=== PATIENT | female | born 1990 | race Caucasian/White ===

== ENCOUNTER 2024-05-08 11:17 | Emergency (ER) | payer OTHER, BC, SELFPAY ==
[2024-05-08 11:20] VITALS: BP 141/83
--- NOTE | 2024-05-08 11:34 | ED.GENMED ---
History of Present Illness
<Jenny Garcia PA-C - Last Filed: 05/08/24 18:23>
General
Chief Complaint: Fall
Source: patient
Exam Limitations: none
Time Seen by Provider: 05/08/24 11:32
Nursing documentation reviewed up to this point in time: agreed with
Travel History
Have you had any contact with someone who has COVID-19?: No
Do you have any symptoms of coronavirus? Fever > 100 degrees, chills, cough, shortness of breath, sore throat, loss of taste or smell, muscle aches, or headache?: No
History of Present Illness
History of Present Illness:
Patient is a 33-year-old female at 14 weeks gestation presenting to the emergency room for evaluation following fall earlier this morning at work. 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
landing on her left side. She did not hit her head or lose consciousness. She has no real complaints at this time. Patient denies any headache, neck pain, back pain, abdominal pain, or pain in upper or lower extremities.
However�patient is concerned about her . She has had ultrasounds and genetic testing that is highly concerning for monosomy X, Vu syndrome. She has been advised there is likelihood of spontaneous miscarriage. Patient does deny any
vaginal bleeding at this time but came for ultrasound. She is due to follow-up with a high risk ultrasound this Tuesday. She follows with Dr. Von Camp at [facility] for OB care.
Review of Systems
<Jenny Garcia PA-C - Last Filed: 05/08/24 18:23>
Review of Systems
Allergies reviewed?: Yes
All Other Systems: ROS reviewed and negative except as documented in HPI and ROS
Phy Exam
<Jenny Garcia PA-C - Last Filed: 05/08/24 18:23>
Physical Exam
Physical Exam:
Vitals: Patient's vital signs are stable. Afebrile
General: Patient is well appearing, no acute distress. Nontoxic-appearing
Skin: Warm and dry, no rashes or lesions. No bruising noted to trunk or extremities
Head: Normocephalic, atraumatic
Eyes: Sclera nonicteric. EOMs intact. No nystagmus.
Throat: Protecting airway
Neck: Normal ROM, no cervical spine tenderness, no meningismus. Trachea midline
Cardiac: Regular rate and rhythm, no murmurs. No anterior chest wall tenderness
Pulm: Normal respiratory effort, no wheezes, rales, rhonchi heard on exam. No tenderness
Abdomen: Abdomen soft no abdominal tenderness.
Extremities: No evidence of cyanosis or edema. Great distal pulses
Neuro: AAOx3. CN II-XII intact. No focal neurologic deficits.
Psychiatric: Normal affect.
Course
<Jenny Garcia PA-C - Last Filed: 05/08/24 18:23>
Orders/Labs/Results
Orders:
Orders
05/08/24 11:44
US 2nd/3rd Trimester Urgent
Comment:
Reason For Exam: fall, unable to get dopper HR
Vital Signs
Initial and Last Documented VS:
Initial Vital Signs
Temp Pulse Resp BP Pulse Ox
99.1 F 86 20 141/83 100
05/08/24 11:20 05/08/24 11:20 05/08/24 11:20 05/08/24 11:20 05/08/24 11:20
Last Documented Vital Signs
Temp Pulse Resp BP Pulse Ox
99.1 F 86 20 141/83 100
05/08/24 11:20 05/08/24 11:20 05/08/24 11:20 05/08/24 11:20 05/08/24 11:20
<Jayden Ramirez DO - Last Filed: 05/08/24 13:09>
Orders/Labs/Results
Orders:
Orders
05/08/24 11:44
US 2nd/3rd Trimester Urgent
Comment:
Reason For Exam: fall, unable to get dopper HR
Vital Signs
Initial and Last Documented VS:
Initial Vital Signs
Temp Pulse Resp BP Pulse Ox
99.1 F 86 20 141/83 100
05/08/24 11:20 05/08/24 11:20 05/08/24 11:20 05/08/24 11:20 05/08/24 11:20
Last Documented Vital Signs
Temp Pulse Resp BP Pulse Ox
99.1 F 86 20 141/83 100
05/08/24 11:20 05/08/24 11:20 05/08/24 11:20 05/08/24 11:20 05/08/24 11:20
<Jenny Garcia PA-C - Last Filed: 05/08/24 18:23>
MDM/Problems Addressed
Differential Diagnosis Includes:
Not limited to: Contusions, spontaneous
MDM/Problems Addressed:
Patient is a 33-year-old female -0-1-1 at 14 weeks gestation presenting for concerns following follow-up today. Patient did not sustain any injuries in fall but came to emergency department for ultrasound. She is due to follow-up with high
risk ultrasound due to likely monosomy X this Tuesday. Follows with [facility] women's health BLACK TOP SPREADER MACHINE OPERATOR. Vital signs are stable. Physical exam as above. There are no signs of trauma on physical exam. No bruising or bony deformities. Patient's upper and
lower extremities are atraumatic and nontender. Abdomen is soft and nontender. Will get OB ultrasound. Will closely monitor and reassess.
Spoke with radiologist and reviewed ultrasound report. Unfortunately ultrasound showed demise with no cardiac activity and retained products. Did discuss findings with patient who has already scheduled a follow-up appoint with her BLACK TOP SPREADER MACHINE OPERATOR
tomorrow. Patient is blood type B+ and has never required RhoGAM in the past. Expectations reviewed with patient�she may experience vaginal bleeding and needs to follow-up with BLACK TOP SPREADER MACHINE OPERATOR tomorrow for further evaluation/management. Return precautions
discussed with patient at length. Patient is comfortable with this plan. She will follow-up with BLACK TOP SPREADER MACHINE OPERATOR tomorrow.
Chronic conditions affecting care:
N/A
Acute Exacerbation and/or Progression of Chronic Illness:
N/A
<Jenny Garcia PA-C - Last Filed: 05/08/24 18:23>
*Radiology
Radiology exam reviewed: preliminary read by ED provider and radiology read reviewed
*Pulse Oximetry
Patient hypoxic: no
*EKG
Interpreted by ED Provider?: NA
*Camp Manager Interpretation
Rate: Camp Manager- N/A
*Critical Care Note
Total Time (30-74mins, 75-104mins- exclusive of procedures): Not Applicable
ED Attending Note
<Jenny Garcia PA-C - Last Filed: 05/08/24 18:23>
-
Portions of this chart may have been created with voice recognition software.� Occasional wrong word or��sound alike� substitutions may have occurred due to the inherent limitations of voice recognition software.
<Jayden Ramirez DO - Last Filed: 05/08/24 13:09>
ED Attending Note
Patient seen and examined by attending physician: Yes
I performed the substantive portion of visit, reviewed & personally made and approve the management plan that is documented in note by myself or ROBBY.: Yes
ED Attending Note:
Patient is a 33-year-old 3 para 1 � 0 � 1 � 1 with an FDLMP the first week of December and presents to be evaluated after patient fell on her at work today. Patient is a physical therapist. Patient denies any real complaints. Patient's
has been possible genetic malformation. Patient appears well vital signs are stable. Patient has a history of being blood type B+. Patient has not required RhoGAM in the past. Patient is in no distress. The ultrasound shows
demise. Discussed this with the patient. Patient is to see her motor teacher tomorrow. At this time the patient has no pain or vaginal bleeding. Informed patient she may develop bleeding and needs to be further reevaluated by her motor teacher.
Discharge Plan
Departure
Patient Disposition: Home (Routine Discharge)
Date of Disposition: 05/08/24
Time of Disposition: 13:17
Patient with high blood pressure during this ER visit?: Yes
Condition: Good
Covid-19: Not Applicable
Discharge Problem:
Fall, Spontaneous in second trimester
Instructions: Loss (Miscarriage) ED, BLOOD PRESSURE
Referrals:
Felix Gray MD [Family Provider] -
Activity Restrictions/Additional Instructions:
RETURN TO THE EMERGENCY DEPARTMENT WITH ANY FEVERS, CHILLS, HEAVY VAGINAL BLEEDING, SEVERE ABDOMINAL PAIN, INTRACTABLE NAUSEA/ VOMITING, WORSENING SHORTNESS OF BREATH, OR ANY OTHER CONCERNS
-As discussed�there was no evidence of cardiac activity on your ultrasound today. You must follow-up with your BLACK TOP SPREADER MACHINE OPERATOR tomorrow as scheduled for further management.
-Please monitor your symptoms closely and return to the emergency department any acute worsening.
Interventions
Interventions:
*Risk Screen - Suicide Last Done: 05/08/24 11:20
*General Assessment Last Done: 05/08/24 11:20
*Neglect/Abuse Screening Last Done: 05/08/24 11:20
*Nursing Disposition Last Done: 05/08/24 13:29
ED-Musculoskeletal Assessment Last Done: 05/08/24 11:43
ED- Neurological Assessment Last Done: 05/08/24 11:43
ED-Skin Assessment Last Done: 05/08/24 11:43
Discharge Date and Time
Discharge Date/Time: 05/08/24 13:29
Print Language: GRENADIAN
== END 2024-05-08 13:29 | disposition home or self-care (01) ==
LOC: EMR 11:17
PROVIDERS: EMERGENCY PHYSICIAN Emergency Medicine; FAMILY PHYSICIAN Family Medicine
DX: O03.9 Complete or unspecified spontaneous abortion without complication (principal); W19.XXXA Unspecified fall, initial encounter; Z3A.14 14 weeks gestation of pregnancy
CPT/HCPCS: 99284; 76805